=== PATIENT | female | born 1990 | race Hispanic/Latino ===

== ENCOUNTER 2018-11-26 21:41 | Emergency (ER) | payer BC ==
[2018-11-26] MEDS ORDERED: Sodium Chloride 0.9% 1,000 ML IV STA (22:06)
[2018-11-26 22:55] LABS: BASO % 0.8 % (0.0-2.0); EOS % 0.1 % (0.0-4.0); LYMPH # 0.5 K/uL (1.0-4.3); LYMPH % 15.3 % (20.0-40.0); MEAN CORPUSCULAR HEMOGLOBIN 28.8 pg (27.0-31.0); MEAN CORPUSCULAR HGB CONC 33.9 g/dL (33.0-37.0); MONO # 0.4 K/uL (0.0-0.8); MONO % 12.9 % (0.0-10.0); NEUT # 2.3 K/uL (1.8-7.0); NEUT % 70.9 % (50.0-75.0); NRBC % 0.3 % (0.0-0.0); RBC 4.85 Mil/uL (3.80-5.20); RED CELL DISTRIBUTION WIDTH 13.5 % (11.5-14.5); WHITE BLOOD COUNT 3.3 K/uL (4.8-10.8)
[2018-11-26 22:57] LABS: BLOOD UREA NITROGEN 8 mg/dl (7-17); CALCIUM 9.6 mg/dL (8.4-10.2); GFR NON-AFRICAN AMERICAN 60
--- NOTE | 2018-11-26 23:38 | ED PDOC ---
History of Present Illness History of Present Illness: 28 year old F with no PMHx presenting with fever, weakness. States she has been ill since Wednesday with fever, bodyaches, chills, sore throat, and cough. States she coughs so hard she has pain her chest on both sides. States she feels nausea but has not vomited. Denies urinary symptoms. Her headache is nonthunderclap, not maximal in onset. States she has been around her friend who was recently diagnosed with pneumonia. She went to [facility] and had a negative flu swab and was given Azithromycin, of which she has take one dose. PMD: None HPI: Influenza Time Seen by Provider: 11/26/18 21:58 Chief Complaint: Flu-like Symptoms History Per: Patient Exam Limitations: no limitations Onset/Duration Of Symptoms: Days Symptoms include: fever, headache, bodyaches, sore throat, cough Past Medical History Reviewed: Historical Data, Nursing Documentation, Vital Signs Vital Signs: Last Vital Signs Temp 100.7 F H 11/26/18 21:45 Pulse 88 11/26/18 21:45 Resp 17 11/26/18 21:45 BP 116/75 11/26/18 21:45 Pulse Ox 99 11/26/18 21:45 - Medical History PMH: No Chronic Diseases - Family History Family History: States: Unknown Family Hx - Allergies Allergies/Adverse Reactions: Allergies Allergy/AdvReac Type Severity Reaction Status Date / Time Penicillins Allergy RASH Verified 11/26/18 21:44 Review of Systems ROS Statement: Except As Marked, All Systems Reviewed And Found Negative Constitutional: Positive for: Fever, Chills, Weakness, Malaise ENT: Positive for: Throat Pain Cardiovascular: Positive for: Chest Pain Respiratory: Positive for: Cough Physical Exam - Reviewed Nursing Documentation Reviewed: Yes Vital Signs Reviewed: Yes - Physical Exam Appears: Positive for: Non-toxic, No Acute Distress, Uncomfortable Head Exam: Positive for: ATRAUMATIC, NORMAL INSPECTION, NORMOCEPHALIC Skin: Positive for: Normal Color, Warm, DRY Eye Exam: Positive for: EOMI, Normal appearance, PERRL ENT: Positive for: Normal ENT Inspection Neck: Positive for: Normal, Painless ROM Cardiovascular/Chest: Positive for: Regular Rate, Rhythm Respiratory: Positive for: CNT, Normal Breath Sounds Gastrointestinal/Abdominal: Positive for: Normal Exam, Soft Back: Positive for: Normal Inspection Extremity: Positive for: Normal ROM Neurological/Psych: Positive for: Awake, Alert, Normal Tone Medical Decision Making Medical Decision Making: A/P: 28 year old presenting with fever, cough, weakness --Likely URI v. PNA, out of treatment window for flu with tamfilu --Will treat symptomatically and re-eval 0045 --Patient is feeling much better, appears much improved --No longer having fever, vitals stable --Will discharge home, advised to followup with primary care - Laboratory Results Result Diagrams: 11/26/18 22:30 11/26/18 22:30 - ECG O2 Sat by Pulse Oximetry: 99 Disposition - Clinical Impression Clinical Impression: Upper respiratory infection - Disposition Referrals: Rita Marc [Outside] Disposition: Routine/Home Disposition Time: 00:45 Condition: IMPROVED Additional Instructions: Please followup with a primary care doctor in 2 -3 days for a checkup. Instructions: Viral Upper Respiratory Infection, Adult (DC) Forms: [employer] (Kyrgyz)
[2018-11-27 00:53] VITALS: BP 127/66; PULSE 64; RESP 18; TEMP 99.2
[2018-11-27 01:11] VITALS: O2SAT 99
--- NOTE | 2018-11-27 08:36 | RAD ---
Date of service: 11/26/2018 HISTORY: fever, cough COMPARISON: No prior. TECHNIQUE: Chest PA and lateral FINDINGS: LUNGS: No active pulmonary disease. PLEURA: No significant pleural effusion identified. No pneumothorax apparent. CARDIOVASCULAR: No aortic atherosclerotic calcification present. Normal cardiac size. No pulmonary vascular congestion. OSSEOUS STRUCTURES: No significant abnormalities. VISUALIZED UPPER ABDOMEN: Normal. OTHER FINDINGS: None. IMPRESSION: No active disease.
== END 2018-11-27 00:53 | disposition home or self-care (01) ==
LOC: H.ER 21:41
DX: J06.9 Acute upper respiratory infection, unspecified (principal); Z88.0 Allergy status to penicillin
CPT/HCPCS: 71046; 80048; 81025; 85025; 96361; 96374; 99284; J1885; J7030